=== PATIENT | male | born 1965 | race Caucasian/White ===

== ENCOUNTER 2016-10-05 05:37 | Emergency (ER) | payer BC, OTHER ==
[~2016-10-05] VITALS: Ht 172.7 cm; Wt 99.8 kg
[2016-10-05 05:41] VITALS: BP 157/96
--- NOTE | 2016-10-05 05:47 | NUR ---
PT AMBULATED TO BED 1
[2016-10-05] MEDS ORDERED: LIDOCAINE 1% 500 MG/50 ML VIAL INJ ONE (05:50)
[2016-10-05] MEDS ORDERED: LIDOCAINE 1% ED 50 ML ONE (05:50)
--- NOTE | 2016-10-05 05:53 | NUR ---
Dr. Chawla evaluating patient at bedside.
--- NOTE | 2016-10-05 06:00 | NUR ---
Patient discharged with v/s stable BY DR. RAZO. Written and verbal after care instructions given and explained. Patient verbalized understanding. Ambulatory with steady gait. All questions addressed prior to discharge. Advised to follow up with PMD.
[2016-10-05 06:03] VITALS: BP 149/94
[2016-10-05] MEDS ORDERED: IBUPROFEN 800 MG TAB PO ONE (06:15)
[2016-10-05] MEDS ORDERED: IBUPROFEN 800 MG TAB ONE (06:50)
== END 2016-10-05 06:00 | disposition home or self-care (01) ==
LOC: MED 05:37 → EEVIPCON 05:37 → MED 06:00
DX: K13.0 Diseases of lips (principal); R03.0 Elevated blood-pressure reading, without diagnosis of hypertension
CPT/HCPCS: 10060; 99283; J2001

== ENCOUNTER 2017-06-19 07:53 | Outpatient (CLI) | payer OTHER | END 2017-06-19 20:34 | disposition home or self-care (01) | LOC: MRD 07:53 | PROVIDERS: ATTEND Urology | DX: N23 Unspecified renal colic (principal); N50.819 Testicular pain, unspecified | CPT/HCPCS: 76770 ==